=== PATIENT | female | born 1970 | race Caucasian/White ===

== ENCOUNTER → 2023-05-18 06:40 | Outpatient (REF) | payer OTHER, SELFPAY | LOC: MRI 06:40 | PROVIDERS: ATTENDING PHYSICIAN Internal Medicine Rheumatology; FAMILY PHYSICIAN Family Medicine | DX: M46.1 Sacroiliitis, not elsewhere classified (principal); M47.819 Spondylosis without myelopathy or radiculopathy, site unspecified | CPT/HCPCS: 72195 ==

== ENCOUNTER → 2023-09-14 09:37 | Outpatient (REF) | payer OTHER, SELFPAY | LOC: WDC 09:37 | PROVIDERS: ATTENDING PHYSICIAN Obstetrics & Gynecology; FAMILY PHYSICIAN Family Medicine | DX: Z12.31 Encounter for screening mammogram for malignant neoplasm of breast (principal) | CPT/HCPCS: 77063; 77067 ==

== ENCOUNTER → 2023-12-13 16:18 | Outpatient (REF) | payer OTHER, SELFPAY | LOC: RAD 16:18 | PROVIDERS: ATTENDING PHYSICIAN Otolaryngology; FAMILY PHYSICIAN Family Medicine | DX: J34.2 Deviated nasal septum (principal); R51.9 Headache, unspecified; J32.1 Chronic frontal sinusitis | CPT/HCPCS: 70220 ==

== ENCOUNTER → 2024-02-25 08:32 | Outpatient (REF) | payer OTHER, SELFPAY | LOC: PAVMRI 08:32 | PROVIDERS: ATTENDING PHYSICIAN Otolaryngology | DX: R51.9 Headache, unspecified (principal) | CPT/HCPCS: 70551 ==

== ENCOUNTER → 2024-09-19 08:53 | Outpatient (REF) | payer OTHER, SELFPAY | LOC: WDC 08:53 | PROVIDERS: ATTENDING PHYSICIAN Obstetrics & Gynecology; FAMILY PHYSICIAN Family Medicine | DX: Z12.31 Encounter for screening mammogram for malignant neoplasm of breast (principal) | CPT/HCPCS: 77063; 77067 ==